=== PATIENT | female | born 1995 ===

== ENCOUNTER 2024-03-08 08:49 | Outpatient (CLI) | payer BC, SELFPAY ==
--- NOTE | ~2024-03-08 | MR_ITS ---
EXAMINATION: MR foot RT wo con DATE: 03/08/2024 09:37 INDICATION: Right great toe metatarsophalangeal joint pain TECHNIQUE: Magnetic resonance imaging (MRI) of the right fore/mid foot was performed without intraven ous contrast. Sequences included sagittal T1-weighted FSE, sagittal fluid sensitive FSE STIR, coronal PD-weighted FS FSE, coronal T1-weighted FSE, axial PD-weighted FS FSE, and axial PD-weighted FSE. COMPARISON: None FINDINGS: 30 degrees hallux valgus. There is normal bone marrow signal throughout with no fracture or pathologi c marrow replacing process. Mild polyarticular osteoarthritis at the first metatarsophalangeal and se cond and third tarsal metatarsal joints. Small focus of subarticular increased signal at the navicula r on its articulation with the talus suggesting small region of overlying high-grade chondromalacia. Mild increased fluid at the first intermetatarsal measuring 8 x 7 x 4.5 mm between the heads of the f irst and second metatarsals consistent with mild bursitis. Minimal fluid at the second and third inte rmetatarsal bursae which remain within normal limits. Physiologic amount fluid in the joint spaces wi th no tenosynovitis or other abnormal fluid collections. The Lisfranc ligament complex as well as the collateral ligament complex at the metatarsophalangeal and interphalangeal joints are normal. Visual ized portion of the flexor and extensor tendons are normal. IMPRESSION: 1. 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 Reviewed, dictated and finalized at location B. IMPRESSION: 1. 30 degrees hallux valgus with mild osteoarthritis at the first metatarsophal angeal joint and mild first intermetatarsal bursitis.
== END 2024-03-08 08:50 ==
LOC: GOSHIMG 08:50
DX: S93.52 Sprain of metatarsophalangeal joint of toe (principal); M20.11 Hallux valgus (acquired), right foot; M19.071 Primary osteoarthritis, right ankle and foot; M71.571 Other bursitis, not elsewhere classified, right ankle and foot
CPT/HCPCS: 73718

== ENCOUNTER 2024-07-12 11:15 | Outpatient (CLI) | payer BC, SELFPAY ==
--- NOTE | ~2024-07-12 | XR_ITS ---
EXAMINATION: XR lumbar spine 2-3V DATE: 07/12/2024 11:28 INDICATION: 3 days of nontraumatic low back pain TECHNIQUE: Anteroposterior and lateral views of the lumbar spine, and cone-down lateral view of the l umbosacral junction were obtained. COMPARISON: None. FINDINGS: Hypoplastic bilateral riblets at T12. There are 5 more caudal nonrib-bearing lumbar segments. Alignme nt is normal. Vertebral body and disc heights are normal. Sacral arches are intact. Mild bilateral sa croiliac osteoarthritis. IMPRESSION: 1. Mild bilateral sacroiliac osteoarthritis. Unremarkable lumbar spine. Reviewed, dictated and finalized at location A.
== END 2024-07-12 11:16 | disposition home or self-care (01) ==
DX: M54.50 Low back pain, unspecified (principal); M47.898 Other spondylosis, sacral and sacrococcygeal region
CPT/HCPCS: 72100